=== PATIENT | female | born 1975 | race Caucasian/White ===

== ENCOUNTER 2023-07-23 15:37 | Outpatient (CLI) | payer BC, SELFPAY ==
--- NOTE | 2023-07-23 15:42 | XR_ITS ---
WS: [id number] EXAMINATION: XR tibia fibula RT 2V [id number] REASON FOR EXAM: Subcutaneous nodule of right lower extremity COMPARISON: None available. ORDER DATE: 07/23/2023 3:55 PM FINDINGS: There is no sign of any acute osseous or articular abnormality. There are no specific soft tissue abn ormalities. IMPRESSION: No acute change
--- NOTE | 2023-07-23 15:43 | XR_ITS ---
WS: [id number] EXAMINATION: XR ankle RT min 3V* [id number] REASON FOR EXAM: Pain of right heel COMPARISON: None available. ORDER DATE: 07/23/2023 3:55 PM TECHNIQUE: 3 views of the right ankle were obtained. X-RAY FINDINGS: No evidence of acute osseous or articular change. There is minor degenerative change at the distal fi bula and a small 5 mm plantar calcaneal spur noted. IMPRESSION: No fractures or dislocations of the right ankle.
== END 2023-07-23 15:38 | disposition home or self-care (01) ==
PROVIDERS: PCP Nurse Practitioner Family; Visit Provider Nurse Practitioner Family
DX: M79.671 Pain in right foot (principal); R22.41 Localized swelling, mass and lump, right lower limb
CPT/HCPCS: 73590; 73610

== ENCOUNTER 2025-03-24 21:01 | Emergency (ER) | payer BC, SELFPAY ==
[2025-03-24 21:05] VITALS: BP 110/78; PULSE 69; RESP 16; TEMP 36.4; O2SAT 98; BMI 30.4
[2025-03-24 21:19] LABS: Glucose Point of Care 114 mg/dL (70-110)
--- NOTE | 2025-03-24 21:29 | CTR_ITS ---
PROCEDURE INFORMATION: Exam: CT Head Without Contrast Exam date and time: 03/24/2025 9:51 PM Age: 49 years old Clinical indication: Other: Low blood pressure RT arm numbness; Additional info: Neuro symptoms TECHNIQUE: Imaging protocol: Computed tomography of the head without contrast. Radiation optimization: All CT scans at this facility use at least one of these dose optimization techniques: automated exposure control; mA and/or kV adjustment per patient size (includes targeted exams where dose is matched to clinical indication); or iterative reconstruction. COMPARISON: No relevant prior studies available. RADIATION DOSE METRICS: Total DLP (mGy-cm): 919.99 FINDINGS: Brain: No evidence of acute intracranial hemorrhage. No midline shift. Normal differentiation of bernard-white matter. Cerebral ventricles: Ventricles are normal in caliber. Paranasal sinuses: Visualized paranasal sinuses are clear. Mastoid air cells: Mastoid air cells are clear. Bones: No acute osseous findings. Soft tissues: Visualized superficial soft tissues are within normal limits. CT/CT head wo con* [id number] IMPRESSION: No acute intracranial findings.
--- NOTE | 2025-03-24 22:53 | XRR_ITS ---
PROCEDURE INFORMATION: Exam: XR Chest Exam date and time: 03/24/2025 10:56 PM Age: 49 years old Clinical indication: Other: Low blood pressure, right sided weakness; Additional info: Stroke like symptoms TECHNIQUE: Imaging protocol: Radiologic exam of the chest. Views: 1 view. COMPARISON: No relevant prior studies available. FINDINGS: Lungs: Unremarkable. No consolidation. Pleural spaces: Unremarkable. No pleural effusion. No pneumothorax. Heart/Mediastinum: Unremarkable. No cardiomegaly. Bones/joints: Unremarkable. XR/XR chest 1V portable [id number] IMPRESSION: No acute findings.
[2025-03-24 22:58] VITALS: BP 105/61; PULSE 61; RESP 16; O2SAT 99
[2025-03-24 23:46] LABS: Basophils % 0.1 %; Hematocrit 36.9 % (36-47); Lymphocytes # 2.8 10^3/uL (0.8-4.8); Lymphocytes % 26.4 %; Mean Corpuscular HGB Conc 32.5 g/dL (30-55); Mean Corpuscular Hemoglobin 28.1 pg (27-33); Mean Corpuscular Volume 86.4 fl (85-98); Mean Platelet Volume 9.4 fL (7.4-10.4); Neutrophils # 6.68 10^3/uL (1.8-7.7); Neutrophils % 63.5 %; Nucleated Red Blood Cells % 0 %; Platelet Count 369 10^3/cmm (157-399); Red Blood Count 4.27 10^6/uL (3.85-5.65); Red Cell Distribution Width 14.1 % (12.1-15.1); White Blood Count 10.51 10^3/uL (3.29-11.43)
[2025-03-24] MEDS: sodium chloride 0.9% 1,000 ML 999 ML IV (23:49)
--- NOTE | 2025-03-24 23:52 | ECG_ITS ---
[facility]: 2025-03[facility]24 Pat Name: Aurora Alas Department: Room: Gender: Female Java Web User Interface Developer: : 1975 Requested By: Migel Duran Order Number: [id number] Cristóbal MD: TOMMY RIVERA Measurements Intervals [place] Rate: 60 P: 53 IA: 135 QRS: 15 QRSD: 90 T: 17 QT: 439 QTc: 440 Interpretive Statements SINUS RHYTHM No previous ECG available for comparison Electronically Signed On 03-25-2025 22:49:44 CDT by TOMMY RIVERA [email or web address]
[2025-03-25 00:06] LABS: Bilirubin Urine Negative (Negative); Blood Urine Negative (Negative); Glucose Urine UA Negative (Normal); Ketones Urine Negative (Negative); Leukocyte Esterase Urine Negative (Negative); Nitrate Urine Negative (Negative); Protein Urine Negative (Negative); Specific Gravity, Urine 1.005 (1.005-1.030); Urine Appearance Clear (CLEAR); Urine Color Yellow (Yellow); Urobilinogen Urine 0.2 mg/dL (Negative)
[2025-03-25 00:08] LABS: Bacteria Urine None Seen /hpf; Hyaline Casts Urine 0-4 /lpf; RBC Urine 0-2 /hpf (0-2); Squamous Epithelial Cell Urine 0-5 /hpf (0-5); WBC Urine 0-5 /hpf (0-5)
[2025-03-25 00:14] LABS: Troponin(5th) Baseline < 6 ng/L (0-10)
[2025-03-25 00:17] LABS: Alanine Aminotransferase 13 U/L (0-33); Albumin Level 4.3 g/dL (3.5-5.2); Alkaline Phosphatase 131 U/L (35-105); Anion Gap 15.1 (5-19); Aspartate Amino Transferase 12 U/L (0-32); Blood Urea Nitrogen 18 mg/dL (6-20); Calcium 9.6 mg/dL (8.5-10.5); Carbon Dioxide 28 mmol/L (22-29); Chloride 100 mmol/L (98-107); Creatinine Clr Calc Pharmacy 44.4235; Globulin 2.7 g/dL (1.3-4.6); Glucose 102 mg/dL (65-115); Osmolality Calculated 290 mOsm/kg (285-295); Potassium 4.1 mmol/L (3.5-5.1); Sodium 139 mmol/L (136-145); Total Bilirubin 0.2 mg/dL (0.15-1.2)
[2025-03-25 02:21] VITALS: BP 124/75; PULSE 84; RESP 16; O2SAT 98
--- NOTE | 2025-03-25 05:22 | W.ED.NEUROSD ---
HPI - Neuro Symptoms/Deficit General: Chief Complaint: Neuro Symptoms/Deficit Stated Complaint: Rt Arm Numb Time Seen by Provider: 03/24/25 22:53 History of Present Illness: Patient reports feeling unwell throughout the day, describing symptoms of lightheadedness, seeing stars upon standing, numbness in the arm, and ringing in the ear. Upon checking BP at home, readings were 66/44 mmHg, confirmed after changing batteries. After receiving a liquid IV and resting, BP improved to 74/44 mmHg. Speech was noted to be slow, and the patient appeared neurologically abnormal to the caregiver. No chest pain, shortness of breath, or nausea reported. Symptoms began the previous night and persisted into the following day. No recent cough, fever, or dysuria. History of TIA at age 22. Recent ear infection treated with prednisone. Cardiac workup including EKG, calcium score, and CT scan was reportedly normal except for a failed vein test. No history of dehydration, bleeding, or substance use. No new medications or suspicious exposures. Related Data Allergies Allergy/AdvReac Type Severity Reaction Status Date / Time acetaminophen (From Percocet) Allergy ADR-Halluci Verified 03/24/25 21:11 nating oxycodone (From Percocet) Allergy ADR-Halluci Verified 03/24/25 21:11 nating Penicillins Allergy ALGY-Hives Verified 03/24/25 21:11 Physical Exam Const: COMMON NORMALS: no acute distress, patient oriented x3 and alert HENMT: COMMON NORMALS: normocephalic and atraumatic HEAD & SCALP: normocephalic and atraumatic Eye: COMMON NORMALS: Equal, round and reactive pupils present, EOMs intact bilaterally and no scleral icterus PUPIL: Yes Equal, round and reactive pupils present Resp: COMMON NORMALS: normal respiratory effort and No retractions Cardio: COMMON NORMALS: regular rate, regular rhythm and No murmurs present (Cardio) RATE: regular rate RHYTHM: regular rhythm GI: COMMON NORMALS: Normal to inspection, nondistended, normoactive bowel sounds present, Soft to palpation and non-tender PALPATION: Yes Soft to palpation Neuro: COMMON NORMALS: patient oriented x3 SENSORIUM/ORIENTATION: Yes alert Skin: COMMON NORMALS: no rashes or lesions noted GENERAL SKIN EXAM: no rashes or lesions noted Course Vital Signs: Vital signs: Vital Signs Temperature 97.6 F 03/24/25 21:05 Pulse Rate 84 03/25/25 02:21 Respiratory Rate 16 03/25/25 02:21 Blood Pressure 124/75 03/25/25 02:21 Pulse Oximetry 98 03/25/25 02:21 Oxygen Delivery Me thod Room Air 03/24/25 22:58 MDM - Neuro Symptoms/Deficit Medical Decision Making In summary, patient is a now well-appearing 49-year-old female seen for hypotensive episode. It seems that she had a prolonged episode of hypotension the lasted throughout much of the day with symptoms of lightheadedness and mild confusion. By the time she got to the emergency department however, symptoms had abated and blood pressure was normal. EKG, chest x-ray, labs are all reassuring. I am uncertain of the etiology of her hypotension but do not suspect ACS or any other emergency warranting further workup at this time. There is no obvious infectious etiology. She will be discharged home in stable and improved condition Lab Data 03/24/25 23:40 03/24/25 23:[address] 03/24/25 21:29 IMPRESSION: No acute intracranial findings. Chest X-Ray 03/24/25 22:53 IMPRESSION: No acute findings. Laboratory Results WBC 10.51 10^3/uL (3.29-11.43) 03/24/25 23:40 RBC 4.27 10^6/uL (3.85-5.65) 03/24/25 23:40 Hgb 12.00 g/dL (11.27-16.99) 03/24/25 23:40 Hct 36.9 % (36-47) 03/24/25 23:40 MCV 86.4 fl (85-98) 03/24/25 23:40 MCH 28.1 pg (27-33) 03/24/25 23:40 MCHC 32.5 g/dL (30-55) 03/24/25 23:40 RDW 14.1 % (12.1-15.1) 03/24/25 23:40 Plt Count 369 10^3/cmm (157-399) 03/24/25 23:40 MPV 9.4 fL (7.4-10.4) 03/24/25 23:40 Neut % (Auto) 63.5 % 03/24/25 23:40 Lymph % (Auto) 26.4 % 03/24/25 23:40 Mcintosh % (Auto) 9.0 % 03/24/25 23:40 Eos % (Auto) 0.0 % 03/24/25 23:40 Baso % (Auto) 0.1 % 03/24/25 23:40 Neut # (Auto) 6.68 10^3/uL (1.8-7.7) 03/24/25 23:40 Lymph # (Auto) 2.8 10^3/uL (0.8-4.8) 03/24/25 23:40 Mcintosh # (Auto) 1.0 10^3/uL (0.2-0.9) H 03/24/25 23:40 Eos # (Auto) 0.0 10^3/uL (0.0-0.8) 03/24/25 23:40 Baso # (Auto) 0.0 10^3/uL (0.0-0.1) 03/24/25 23:40 Nucleated RBC % (auto) 0 % 03/24/25 23:40 Nucleated RBCs # 0.0 /100WBC 03/24/25 23:40 Sodium 139 mmol/L (136-145) 03/24/25 23:40 Potassium 4.1 mmol/L (3.5-5.1) 03/24/25 23:40 Chloride 100 mmol/L (98-107) 03/24/25 23:40 Carbon Dioxide 28 mmol/L (22-29) 03/24/25 23:40 Anion Gap 15.1 (5-19) 03/24/25 23:40 BUN 18 mg/dL (6-20) 03/24/25 23:40 Creatinine 1.4 mg/dL (0.5-0.9) H 03/24/25 23:40 GFR Calculation 40.0 mL/min (90-130) L 03/24/25 23:40 Glucose 102 mg/dL (65-115) 03/24/25 23:40 POC Glucose 114 mg/dL (70-110) H 03/24/25 21:16 Calculated Osmolality 290 mOsm/kg (285-295) 03/24/25 23:40 Calcium 9.6 mg/dL (8.5-10.5) 03/24/25 23:40 Total Bilirubin 0.2 mg/dL (0.15-1.2) 03/24/25 23:40 AST 12 U/L (0-32) 03/24/25 23:40 ALT 13 U/L (0-33) 03/24/25 23:40 Alkaline Phosphatase 131 U/L (35-105) H 03/24/25 23:40 Troponin T Baseline < 6 ng/L (0-10) 03/24/25 23:40 Total Protein 7.0 g/dL (6.6-8.7) 03/24/25 23:40 Albumin 4.3 g/dL (3.5-5.2) 03/24/25 23:40 Globulin 2.7 g/dL (1.3-4.6) 03/24/25 23:40 Urine Color Yellow (Yellow) 03/24/25 23:30 Urine Appearance Clear (CLEAR) 03/24/25 23:30 Urine pH 7.0 (5-7) 03/24/25 23:30 Ur Specific [place] 1.005 (1.005-1.030) 03/24/25 23:30 Urine Protein Negative (Negative) 03/24/25 23:30 Urine Glucose (UA) Negative (Normal) 03/24/25 23:30 Urine Ketones Negative (Negative) 03/24/25 23:30 Urine Blood Negative (Negative) 03/24/25 23:30 Urine Nitrate Negative (Negative) 03/24/25 23:30 Urine Bilirubin Negative (Negative) 03/24/25 23:30 Urine Urobilinogen 0.2 mg/dL (Negative) 03/24/25 23:30 Ur Leukocyte Esterase Negative (Negative) 03/24/25 23:30 Urine RBC 0-2 /hpf (0-2) 03/24/25 23:30 Urine WBC 0-5 /hpf (0-5) 03/24/25 23:30 Ur Squamous Epith Cells 0-5 /hpf (0-5) 03/24/25 23:30 Amorphous Sediment Not Reportable 03/24/25 23:30 Urine Bacteria None seen /hpf (NONE) 03/24/25 23:30 Hyaline Casts 0-4 /lpf H 03/24/25 23:30 All radiology interpretation(s) finalized by discharge Discharge Plan Discharge Patient Disposition: Home Clinical Impression: Hypotensive episode Condition: Stable Discharge Orders: Discharge ED (Routine); Ordered 03/25/25 Ordered By: Migel Coleman Referrals: Michael,ZO Pickett [Primary Care Provider, Nurse Practitioner] Discharge Diet: Usual diet Discharge Activity: Increase activity as tolerated Patient Instructions: Hypotension (ED) Activity Restrictions/Additional Instructions: Your blood tests, EKG, chest x-ray, and CT scan are all reassuring. It appears that your kidney function is very mildly compromised but I have no prior data points to compare to see whether this is something new. Your blood pressure has remained stable throughout your time in the emergency department and I suspect it will stay at this time. There is no evidence of infection or other emergency requiring hospitalization. Stand Alone Forms: Work/School Release Print Language: Salvadorean Coding Level of Care Code ED Loan Operations Specialist for Guille Cabrera
== END 2025-03-25 02:23 | disposition home or self-care (01) ==
PROVIDERS: Emergency Provider Student in an Organized Health Care Education/Training Program; PCP Nurse Practitioner Family
DX: I95.89 Other hypotension (principal)
CPT/HCPCS: 36415; 36416; 70450; 71045; 80053; 81001; 82962; 84484; 85025; 93005; 99285; J7030